=== PATIENT | male | born 1945 | race Caucasian/White ===

== ENCOUNTER → 2023-10-21 | Outpatient (CLI) | payer OTHER | END | disposition home or self-care (01) | LOC: RAH 08:46 | PROVIDERS: ATTEND Physician Assistant | DX: Z01.89 Encounter for other specified special examinations (principal); I11.9 Hypertensive heart disease without heart failure; E88.810 Metabolic syndrome; M47.815 Spondylosis without myelopathy or radiculopathy, thoracolumbar region | CPT/HCPCS: 71046 ==

== ENCOUNTER 2023-11-12 06:16 | Observation (INO) | payer OTHER ==
[2023-11-06 10:57] LABS: BASOPHILS # (AUTO) 0.04 K/uL (0.00-0.20); BASOPHILS % (AUTO) 0.8 % (0.0-5.0); EOSINOPHILS # (AUTO) 0.11 K/uL (0.00-0.70); EOSINOPHILS % (AUTO) 2.1 % (0.0-8.0); HEMATOCRIT 44.9 % (42-54); IMMATURE GRANULOCYTE ABSOLUTE 0.04 K/uL (0-1); LYMPHOCYTES # (AUTO) 1.1 K/uL (1.0-4.8); MEAN CORPUSCULAR HEMOGLOBIN 29.1 pg (27.0-33.0); MEAN CORPUSCULAR HGB CONC 33.4 g/dL (32.0-36.0); MEAN CORPUSCULAR VOLUME 87.2 fL (79-99); MONOCYTES # (AUTO) 0.6 K/uL (0.1-1.0); MONOCYTES % (AUTO) 10.9 % (3.0-13.0); NEUTROPHILS # (AUTO) 3.5 K/uL (1.8-7.7); NEUTROPHILS % (AUTO) 65.4 % (40.0-77.0); PLATELET COUNT (AUTO) 220 K/uL (130-400); RED BLOOD CELL COUNT(AUTO) 5.15 MIL/uL (4.50-6.20); RED CELL DISTRIBUTION WIDTH 13.3 % (11.0-15.5); WHITE BLOOD COUNT (AUTO) 5.3 K/uL (4.8-10.8)
[2023-11-06 11:00] VITALS: BP 155/64; PULSE 67; RESP 18
[2023-11-06 11:06] LABS: APPEARANCE,URINE CLEAR (CLEAR); BILIRUBIN,URINE NEGATIVE (NEGATIVE); COLOR,URINE LIGHT-YELLOW (YELLOW); GLUCOSE, URINE (UA) NEGATIVE (NEGATIVE); KETONES,URINE NEGATIVE (NEGATIVE); LEUKOCYTE ESTERASE ,URINE 250 Leu/uL (NEGATIVE); NITRATE,URINE NEGATIVE (NEGATIVE); OCCULT BLOOD,URINE NEGATIVE (NEGATIVE); PROTEIN,URINE NEGATIVE (NEGATIVE); UROBILINOGEN,URINE 0.2 mg/dL (0.2-1.0)
[2023-11-06 11:12] LABS: ALBUMIN 3.8 g/dL (3.5-5.0); CREATININE 0.8 mg/dL (0.5-1.3); POTASSIUM 4.2 mmol/L (3.5-5.1)
[2023-11-06 11:17] LABS: ADD UA MICROSCOPIC YES
[2023-11-06 11:18] LABS: MUCUS,URINE RARE LPF (None Seen); RBC,URINE 0-1 /HPF (0-1)
[2023-11-06 11:39] LABS: INR 1.05 (0.85-1.15); PROTHROMBIN TIME 11.3 SEC (9.6-11.6)
[2023-11-12] VITALS (28 sets, daily range): BP systolic 101–136; BP diastolic 50–89; PULSE 50–76; RESP 14–20; O2SAT 96–100
[~2023-11-12] VITALS: Ht 179.1 cm; Wt 126.1 kg
[2023-11-12] MEDS ORDERED: TRANEXAMIC ACID 1000MG/10ML ONE (07:22)
[2023-11-12] MEDS: CEFAZOLIN SODIUM 2 GM VIAL ONE (07:52)
[2023-11-12] MEDS: LACTATED RINGERS 1000ML 1,000 ML IV ONE (07:53)
[2023-11-12] MEDS ORDERED: SUCCINYLCHOLINE CHLORIDE 20 MG/ML 10 ML VIAL ONE (08:08)
[2023-11-12] MEDS ORDERED: TAMS-1 PO (08:08)
[2023-11-12] MEDS ORDERED: AMLO1CAP6 PO (08:08)
[2023-11-12] MEDS ORDERED: PROPOFOL 10 MG/ML 20ML VIAL IV ONE (08:08)
[2023-11-12] MEDS ORDERED: ROCURONIUM BROMIDE 10MG/1ML 5ML VL ONE (08:09)
[2023-11-12] MEDS ORDERED: LIDOCAINE PF 100MG/5ML (2%) SYRINGE 5ML ONE (08:09)
[2023-11-12] MEDS ORDERED: ONDANSETRON 4MG INJ ONE (08:09)
[2023-11-12] MEDS ORDERED: FENTANYL CITRATE PF 50 MCG/1 ML 2ML VIAL ONE ×2 (08:09→11:16)
[2023-11-12] MEDS ORDERED: MIDAZOLAM HCL 1 MG/ML 2ML VIAL ONE (08:09)
[2023-11-12] MEDS ORDERED: DEXAMETHASONE SOD PHOSPHATE 4 MG/ML 1ML VIAL ONE (08:14)
[2023-11-12] MEDS ORDERED: ROPIVACAINE 0.5% 5MG/ML 30ML ONE (08:14)
[2023-11-12] MEDS ORDERED: PHENYLEPHRINE HCL 10 MG/ML 1ML VIAL IV ONE (08:47)
[2023-11-12] MEDS ORDERED: FERROUS FUMARATE 324 MG TABLET PO PRN (09:30)
[2023-11-12] MEDS ORDERED: KCL 20 MEQ ERTAB PO PRN (09:30)
[2023-11-12] MEDS ORDERED: CALCIUM CARB 500MG PO PRN (09:30)
[2023-11-12] MEDS ORDERED: ONDANSETRON 4MG INJ IVP PRN (09:30)
[2023-11-12] MEDS ORDERED: POTASSIUM CHLORIDE 20MEQ/100ML 100 ML IV PRN (09:30)
[2023-11-12] MEDS: 0.9%NACL 1000ML 1,000 ML IV SCH (09:30)
[2023-11-12] MEDS ORDERED: POTASSIUM CHLORIDE 10% ELIXIR 20 MEQ/15 ML UDCUP PO PRN (09:30)
[2023-11-12] MEDS: BUPIVACAINE/PF 0.5% 30ML VIAL ONE (09:48)
[2023-11-12] MEDS: KETOROLAC 30MG VIAL (30MG/ML) ONE (09:48)
[2023-11-12] MEDS ORDERED: GLYCOPYRROLATE 0.2 MG/ML 5 ML VIAL ONE (11:16)
[2023-11-12] MEDS ORDERED: NEOSTIGMINE METHYLSULFATE 1MG/ML IV ONE (11:16)
[2023-11-12] MEDS: ONDANSETRON 4MG INJ ONE ×2 (12:07→12:22)
[2023-11-12] MEDS: MEPERIDINE-PF 25 MG/ML SYG ONE ×2 (12:08→12:21)
[2023-11-12] MEDS: HYDROCODONE/ACETAMINOPHEN 5/325 MG TAB ONE (13:31)
[2023-11-12] MEDS: KETOROLAC 15MG/ML VIAL (15MG/ML) ONE (13:35)
[2023-11-12] MEDS: KETOROLAC 15MG/ML VIAL (15MG/ML) IV SCH ×2 (13:35→21:12)
[2023-11-12] MEDS: GABAPENTIN 100 MG CAPSULE PO SCH (14:00)
[2023-11-12] MEDS ORDERED: CEFAZOLIN SODIUM 1 GM VIAL IVPB SCH ×3 (14:30→18:00)
[2023-11-12] MEDS ORDERED: COMPOUND IV MISC 1 EACH IVSOLN MISC PRN (18:00)
[2023-11-12] MEDS: [UNRECOGNIZED DRUG - OTHER] IVPB SCH (18:15)
[2023-11-12] MEDS: CEFAZOLIN SODIUM IVPB SCH (18:15)
[2023-11-12] MEDS: HYDROCODONE/ACETAMINOPHEN 5/325 MG TAB PO PRN (18:27)
[2023-11-12] MEDS: ACETAMINOPHEN 1,000 MG/100 ML VIAL IV ONE (18:29)
[2023-11-12] MEDS: CYCLOBENZAPRINE HCL 10 MG TABLET PO PRN (21:12)
[2023-11-13] VITALS (10 sets, daily range): BP systolic 104–148; BP diastolic 48–69; PULSE 66–88; RESP 20; O2SAT 96–98
[2023-11-13] MEDS: HYDROCODONE/ACETAMINOPHEN 5/325 MG TAB PO PRN (03:10)
[2023-11-13 04:18] LABS: HEMATOCRIT 36.7 % (42-54); MEAN CORPUSCULAR HEMOGLOBIN 28.3 pg (27.0-33.0); MEAN CORPUSCULAR VOLUME 85.9 fL (79-99); RED BLOOD CELL COUNT(AUTO) 4.27 MIL/uL (4.50-6.20); RED CELL DISTRIBUTION WIDTH 13.3 % (11.0-15.5); WHITE BLOOD COUNT (AUTO) 7.2 K/uL (4.8-10.8)
[2023-11-13 04:22] LABS: CREATININE 0.8 mg/dL (0.5-1.3); POTASSIUM 3.7 mmol/L (3.5-5.1)
[2023-11-13] MEDS: TRAMADOL HCL 50 MG TABLET PO PRN (09:15)
[2023-11-13] MEDS: ASPIRIN 325MG EC TAB PO SCH (09:15)
[2023-11-13] MEDS: POLYETHYLENE GLYCOL 3350 17 GM POWD.PACK PO SCH (09:15)
[2023-11-13] MEDS: KETOROLAC 15MG/ML VIAL (15MG/ML) IV PRN (13:20)
[2023-11-14 04:00] VITALS: BP 129/80; PULSE 82; RESP 19
[2023-11-14 08:00] VITALS: BP 150/66; PULSE 87; RESP 18
[2023-11-14 09:00] VITALS: O2SAT 94
[2023-11-14 12:00] VITALS: BP 129/75; PULSE 80; RESP 18
[2023-11-14 16:00] VITALS: BP 153/80; PULSE 86; RESP 18
[2023-11-14] MEDS ORDERED: DOCU-116 PO (17:08)
[2023-11-14] MEDS ORDERED: HYDR-4060 PO (17:08)
[2023-11-14] MEDS ORDERED: CYCL-309 PO (17:08)
[2023-11-14] MEDS ORDERED: GABA100C PO (17:08)
[2023-11-14] MEDS ORDERED: ASPI-891 PO (17:08)
[2023-11-14 20:00] VITALS: BP 139/62; PULSE 93; RESP 20
[2023-11-15] MEDS ORDERED: BISACODYL 10 MG SUPP.RECT RC PRN (09:30)
== END 2023-11-14 22:00 ==
LOC: DAH 06:16 → DAHIP 06:17 → 4BH 15:50
PROVIDERS: ADMIT Student in an Organized Health Care Education/Training Program; ATTEND Student in an Organized Health Care Education/Training Program
DX: M17.12 Unilateral primary osteoarthritis, left knee (principal); G89.18 Other acute postprocedural pain; D62 Acute posthemorrhagic anemia; E78.5 Hyperlipidemia, unspecified; E66.01 Morbid (severe) obesity due to excess calories; I10 Essential (primary) hypertension; Z79.899 Other long term (current) drug therapy; Z90.49 Acquired absence of other specified parts of digestive tract; Z88.1 Allergy status to other antibiotic agents; Z68.39 Body mass index [BMI] 39.0-39.9, adult
CPT/HCPCS: 82040; 80048 ×2; 85025; 85610; 85730; 87086; 84134; 86140; 81001; 36415 ×2; 93005; 87641; 64447; 96376 ×2; 96365; 96375; 27447; 73560; 97161; 97116 ×5; 97530 ×9; 96366; 85027; J1100; G0378 ×50; A4663; J7030; A4215 ×2; A4649 ×3; J7120; J3010 ×2; J3490 ×3; J0330; J2001; J2250; J2704; J2405 ×3; J1885 ×5; J2710; J0665; J2175 ×2; J2795; J2371; J0690 ×2; C1713 ×2; G0168; C1776 ×2; A6255; A5120; A4223; A4222; A4221

== ENCOUNTER 2024-01-19 06:47 | Observation (INO) | payer OTHER ==
[2024-01-14 10:22] VITALS: BP 159/74; PULSE 60; RESP 18; TEMP 98.1
[2024-01-14 10:28] LABS: ALBUMIN 3.6 g/dL (3.5-5.0)
[2024-01-14 11:19] LABS: APPEARANCE,URINE CLEAR (CLEAR); BILIRUBIN,URINE NEGATIVE (NEGATIVE); COLOR,URINE LIGHT-YELLOW (YELLOW); GLUCOSE, URINE (UA) NEGATIVE (NEGATIVE); KETONES,URINE NEGATIVE (NEGATIVE); LEUKOCYTE ESTERASE ,URINE 25 Leu/uL (NEGATIVE); NITRATE,URINE NEGATIVE (NEGATIVE); OCCULT BLOOD,URINE NEGATIVE (NEGATIVE); PROTEIN,URINE NEGATIVE (NEGATIVE); UROBILINOGEN,URINE 0.2 mg/dL (0.2-1.0)
[2024-01-14 11:52] LABS: ADD UA MICROSCOPIC YES
[2024-01-14 12:12] LABS: MUCUS,URINE RARE LPF (None Seen); RBC,URINE 0-1 /HPF (0-1); SQUAMOUS EPITHELIAL CELL,UR RARE /HPF (0-2)
[~2024-01-19] VITALS: Ht 179.1 cm; Wt 119.9 kg
[2024-01-19] VITALS (27 sets, daily range): BP systolic 96–159; BP diastolic 36–82; PULSE 51–77; RESP 13–18; TEMP 97.2–98.5; O2SAT 96–98
[~2024-01-19 06:47] MED LIST: AMLO1CAP6 PO; OMEG-102 PO; TAMS-1 PO
[2024-01-19] MEDS: ceFAZolin SODIUM 2 GM VIAL IVPB SCH (07:00)
[2024-01-19] MEDS: ceFAZolin SODIUM 2 GM VIAL ONE (07:50)
[2024-01-19] MEDS: 0.9%NACL 1000ML 1,000 ML IV ONE (07:50)
[2024-01-19] MEDS: FAMOTIDINE 20MG VIAL IV ONE (08:04)
[2024-01-19] MEDS: acetaMINOPHEN 1,000 MG/100 ML VIAL IV ONE (08:04)
[2024-01-19] MEDS ORDERED: proPOFol 10 MG/ML 20ML VIAL IV ONE (08:06)
[2024-01-19] MEDS ORDERED: LIDOCAINE PF 100MG/5ML (2%) SYRINGE 5ML ONE (08:06)
[2024-01-19] MEDS ORDERED: FENTanyl CITRate PF 50 MCG/1 ML 2ML VIAL ONE (08:07)
[2024-01-19] MEDS ORDERED: rocuRONium bROMide 10MG/1ML 5ML VL ONE ×2 (08:07→10:12)
[2024-01-19] MEDS ORDERED: ROPivacaine 0.5% 5MG/ML 30ML ONE (08:09)
[2024-01-19] MEDS ORDERED: ketaMINE 50MG/ML SYRINGE 50 MG/ML DISP.SYRIN ONE (08:09)
[2024-01-19] MEDS ORDERED: dexaMETHasone SOD PHOSPHATE 10MG/ML 1ML VIAL ONE (09:03)
[2024-01-19] MEDS ORDERED: ondanSETRON 4MG INJ ONE (09:03)
[2024-01-19] MEDS: TRANEXAMIC ACID 1000MG/10ML ONE (09:10)
[2024-01-19] MEDS ORDERED: NEOSTIGMINE METHYLSULFATE 1MG/ML IV ONE (09:10)
[2024-01-19] MEDS ORDERED: GLYCOPYRROLATE 0.2 MG/ML 5 ML VIAL ONE (09:10)
[2024-01-19] MEDS ORDERED: phenylEPHRINE HCL 10 MG/ML 1ML VIAL IV ONE (09:13)
[2024-01-19] MEDS: ketOROlac 30MG VIAL (30MG/ML) ONE (10:37)
[2024-01-19] MEDS: ROPivacaine 0.5% 5MG/ML 30ML ONE (10:37)
[2024-01-19] MEDS: TRANEXAMIC ACID 1000MG/10ML IV ONE (11:21)
[2024-01-19] MEDS ORDERED: ceFAZolin SODIUM 2 GM VIAL IVP SCH (12:00)
[2024-01-19] MEDS ORDERED: PoTASSium chl 10% ELIXIR 20MEQ 20 MEQ/15 ML UDCUP PO PRN (12:00)
[2024-01-19] MEDS ORDERED: ondanSETRON 4MG INJ IVP PRN (12:00)
[2024-01-19] MEDS ORDERED: PoTASSium chloRIDE 20MEQ/100ML 100 ML IV PRN (12:00)
[2024-01-19] MEDS ORDERED: ketOROlac 15MG/ML VIAL (15MG/ML) IV PRN (12:00)
[2024-01-19] MEDS ORDERED: PoTASSium chloRIDE 20MEQ ER 20 MEQ ERTAB PO PRN (12:00)
[2024-01-19] MEDS ORDERED: FERROUS FUMARATE 324 MG TABLET PO PRN (12:00)
[2024-01-19] MEDS: MEPERIDINE-PF 25 MG/ML SYG ONE ×2 (12:14→12:39)
[2024-01-19] MEDS: ketOROlac 15MG/ML VIAL (15MG/ML) IV SCH (12:14)
[2024-01-19] MEDS: levoFLOXacin 750 MG/D5W 150ML BAG IV ONE (12:25)
[2024-01-19] MEDS: ketOROlac 15MG/ML VIAL (15MG/ML) ONE (12:35)
[2024-01-19] MEDS: levoFLOXacin 750 MG/D5W 150 ML 150 ML IV ONE (12:36)
[2024-01-19] MEDS: GABApentin 100 MG CAPSULE PO SCH (13:29)
[2024-01-19] MEDS: HYDROcodone/APAP 5/325 1 TAB TABLET PO PRN (13:30)
[2024-01-19] MEDS: 0.9%NACL 1000ML 1,000 ML IV SCH (13:32)
[2024-01-19] MEDS: CYCLOBENZAPRINE HCL 10 MG TABLET PO PRN (15:13)
[2024-01-19] MEDS: traMADol HCL 50 MG TABLET PO PRN (15:14)
[2024-01-19] MEDS: ceFAZolin SODIUM 2 GM VIAL IVP SCH (17:34)
[2024-01-19] MEDS: doCUSate SODIUM 100 MG CAP PO SCH (21:29)
[2024-01-19] MEDS: tamSULOsin HCL 0.4 MG CAP.ER.24H PO SCH (21:29)
[2024-01-20 03:50] VITALS: BP 143/76; PULSE 79; RESP 18; TEMP 97.9
[2024-01-20 05:16] LABS: HEMATOCRIT 34.4 % (42-54); MEAN CORPUSCULAR HEMOGLOBIN 26.8 pg (27.0-33.0); MEAN CORPUSCULAR HGB CONC 31.7 g/dL (32.0-36.0); MEAN CORPUSCULAR VOLUME 84.7 fL (79-99); RED BLOOD CELL COUNT(AUTO) 4.06 MIL/uL (4.50-6.20); RED CELL DISTRIBUTION WIDTH 13.6 % (11.0-15.5); WHITE BLOOD COUNT (AUTO) 9.4 K/uL (4.8-10.8)
[2024-01-20 05:32] LABS: CREATININE 0.9 mg/dL (0.5-1.3)
[2024-01-20 08:00] VITALS: BP 119/63; PULSE 69; RESP 16; TEMP 97.9; O2SAT 96
[2024-01-20] MEDS: FISH OIL 1000 MG/CAP PO SCH (09:33)
[2024-01-20] MEDS: polyETHYLene GLYCol 3350 17 GM POWD.PACK PO SCH (09:34)
[2024-01-20] MEDS: ASPIRIN 325MG EC TAB PO SCH (09:34)
[2024-01-20] MEDS: AMLODIPINE BENAZEPRIL PO SCH (09:39)
[2024-01-20] MEDS: ketOROlac 15MG/ML VIAL (15MG/ML) IV PRN (09:58)
[2024-01-20 11:01] VITALS: BP 121/68; PULSE 66; RESP 18; TEMP 97.8
[2024-01-20] MEDS: levoFLOXacin 750 MG TABLET PO SCH (13:03)
[2024-01-20 15:58] VITALS: BP 124/65; PULSE 60; RESP 16; TEMP 98.3
[2024-01-20] MEDS: PANTOPrazole 40 MG TAB DR PO ONE (16:54)
[2024-01-20] MEDS: MAG/ALUM/SIMETH 30 ML UDCUP PO ONE (16:54)
[2024-01-20 19:00] VITALS: BP 147/67; PULSE 82; RESP 24; TEMP 97.8
[2024-01-20 21:27] VITALS: O2SAT 98
[2024-01-21 04:00] VITALS: BP 136/71; PULSE 77; RESP 22; TEMP 98.3
[2024-01-21 06:27] VITALS: PULSE 78; RESP 16; O2SAT 98
[2024-01-21 07:41] VITALS: BP 130/54; PULSE 59; RESP 17; TEMP 98
[2024-01-21] MEDS: PANTOPrazole 40 MG TAB DR PO SCH (09:19)
[2024-01-21] MEDS: CALCIUM CARB 500MG PO PRN (09:20)
[2024-01-21 11:16] VITALS: BP 126/75; PULSE 76; RESP 17; TEMP 97.9
[2024-01-21] MEDS ORDERED: HYDR-4060 PO (14:48)
[2024-01-21] MEDS ORDERED: CYCL-309 PO (14:48)
[2024-01-21] MEDS ORDERED: GABA100C PO (14:48)
[2024-01-21] MEDS ORDERED: ASPI-891 PO (14:48)
[2024-01-21] MEDS ORDERED: DOCU-116 PO (14:48)
[2024-01-21] MEDS ORDERED: LEVO750T68 PO (14:48)
[2024-01-22] MEDS ORDERED: BisaCODYL 10 MG SUPP.RECT RC PRN (12:00)
== END 2024-01-21 17:10 ==
LOC: DAH 06:47 → DAHIP 06:48 → DAH 06:48 → 4BH 13:10
PROVIDERS: ADMIT Student in an Organized Health Care Education/Training Program; ATTEND Student in an Organized Health Care Education/Training Program
DX: M17.11 Unilateral primary osteoarthritis, right knee (principal); D62 Acute posthemorrhagic anemia; I10 Essential (primary) hypertension; E78.5 Hyperlipidemia, unspecified; I25.10 Atherosclerotic heart disease of native coronary artery without angina pectoris; K50.90 Crohn's disease, unspecified, without complications; N40.0 Benign prostatic hyperplasia without lower urinary tract symptoms; G47.33 Obstructive sleep apnea (adult) (pediatric); I73.9 Peripheral vascular disease, unspecified; E66.9 Obesity, unspecified; Z87.891 Personal history of nicotine dependence; Z85.038 Personal history of other malignant neoplasm of large intestine; Z79.899 Other long term (current) drug therapy
CPT/HCPCS: 82040; 87086 ×2; 87186; 84134; 86140; 81001; 36415 ×2; 93005; 87641; 64447; 96374; 96375; 27447; 73560; 97161; 97116 ×5; 96376; 80048; 85027; 97530 ×2; G0378 ×50; A4223 ×2; A4663; A4215 ×2; A4649 ×4; J3490 ×7; J3010; J1100; J1956; J7030; J2003; J2704; J2405; J1885 ×5; J2710; J2175 ×2; J2795 ×2; J2371; J0690 ×3; C1713 ×2; C1776 ×2; A6255; A5120; A4213; A4222; A4221; A4216

== ENCOUNTER → 2024-08-20 | Outpatient (CLI) | payer OTHER ==
[~2024-08-20] MED LIST changes: +ASPI-891 PO; +CYCL-309 PO; +DOCU-116 PO; +GABA100C PO; +HYDR-4060 PO; +LEVO750T68 PO; -TAMS-1 PO; +TAMS-55 PO
--- NOTE | 2024-08-20 08:59 | HMCIMG ---
Exam Type: HAND 3+VWS RT Clinical Information: PAIN IN RIGHT HAND Comparison: None Findings and impression: No acute fractures or dislocations. Degenerative changes of the interphalangeal joints. Apparent partial collapse of the proximal half of the scaphoid bone which may represent evidence of prior injury or avascular necrosis. This is a chronic finding. Degenerative changes of the wrist.
== END | disposition home or self-care (01) ==
LOC: RAH 08:08
PROVIDERS: ATTEND Internal Medicine
DX: M19.041 Primary osteoarthritis, right hand (principal); M19.031 Primary osteoarthritis, right wrist; M79.641 Pain in right hand
CPT/HCPCS: 73130